=== PATIENT | male | born 1990 | race Hispanic/Latino ===

== ENCOUNTER 2020-12-22 | Emergency (ER) | payer SELFPAY ==
[2020-12-22] MEDS ORDERED: PROCTOZONE-HC2.5 % RE (22:21)
[2020-12-22] MEDS ORDERED: VOLTAREN75 MG PO (22:21)
[2020-12-22] MEDS ORDERED: NITRO-BID21 RE (22:21)
== END 2020-12-22 22:37 | disposition home or self-care (01) | DRG 563 ==
DX: S86.812A Strain of other muscle(s) and tendon(s) at lower leg level, left leg, initial encounter (principal); K60.2 Anal fissure, unspecified; X50.0XXA Overexertion from strenuous movement or load, initial encounter; Y93.66 Activity, soccer